=== PATIENT | female | born 1930 | race Caucasian/White ===

== ENCOUNTER 2017-03-31 08:54 | Emergency (ER) | payer MEDICARE ==
[2017-03-31] MEDS ORDERED: NORMAL SALINE 500 ML IV ONE (09:22)
[2017-03-31 09:30] LABS: VENOUS BLOOD BASE EXCESS 4.6 mmol/L; VENOUS BLOOD HCO3 30.1 mmol/L (20-32); VENOUS BLOOD PCO2 47.6 mmHg (35-63); VENOUS BLOOD PH 7.42 (7.30-7.42)
[2017-03-31 09:31] LABS: ABSOLUTE EOSINOPHILS # (AUTO) 0.2 10^3/uL (0.0-0.6); ABSOLUTE LYMPHOCYTES (AUTO) 1.6 10^3/uL (0.5-4.7); ABSOLUTE MONOCYTES (AUTO) 0.7 10^3/uL (0.1-1.4); ABSOLUTE NEUT (AUTO) 5.5 10^3/uL (1.7-8.2); BASOPHILS % (AUTO) 0.4 % (0-2); EOSINOPHILS % (AUTO) 2.3 % (0-6); HEMATOCRIT 42.1 % (36.0-47.0); HEMOGLOBIN 14.7 g/dL (12.0-15.5); LYMPHOCYTES % (AUTO) 20.1 % (13-45); MEAN CORPUSCULAR HEMOGLOBIN 31.4 pg (27.0-33.4); MEAN CORPUSCULAR HGB CONC 34.9 g/dL (32.0-36.0); MEAN CORPUSCULAR VOLUME 90 fl (80-97); MONOCYTES % (AUTO) 8.8 % (3-13); RED BLOOD COUNT 4.67 10^6/uL (3.72-5.28); RED CELL DISTRIBUTION WIDTH 13.7 % (11.5-14.0); SEGMENTED NEUTROPHILS % (AUTO) 68.4 % (42-78); WHITE BLOOD COUNT 8.1 10^3/uL (4.0-10.5)
--- NOTE | 2017-03-31 09:39 | RADIOLOGY REPORT (SQ) ---
EXAM DESCRIPTION: CHEST SINGLE VIEW COMPLETED DATE/TIME: 03/31/2017 9:24 am REASON FOR STUDY: bed 3 afib COMPARISON: June 2015 EXAM PARAMETERS: NUMBER OF VIEWS: One view. TECHNIQUE: Single frontal radiographic view of the chest acquired. RADIATION DOSE: NA LIMITATIONS: Patient has made a shallow inspiration. FINDINGS: LUNGS AND PLEURA: No opacities, masses or pneumothorax. No pleural effusion. There are so me minimal linear densities in the left lung base most consistent with atelectatic changes. MEDIASTINUM AND HILAR STRUCTURES: No masses. Contour normal. HEART AND VASCULAR STRUCTURES: Cardiac silhouette is partially obscured but appears unchanged. BONES: No acute findings. HARDWARE: None in the chest. OTHER: No other significant finding. IMPRESSION: NO ACUTE RADIOGRAPHIC FINDING IN THE CHEST. TECHNICAL DOCUMENTATION: JOB ID: [id number]
--- NOTE | 2017-03-31 09:50 | EKG REPORT ---
SEVERITY:- ABNORMAL ECG - SINUS RHYTHM RBBB AND LAFB LEFT VENTRICULAR HYPERTROPHY : Confirmed by: Ander Terrell MD 31-Mar-2017 09:50:15
[2017-03-31 09:51] LABS: ALANINE AMINOTRANSFERASE 26 U/L (9-52); ALBUMIN 3.9 g/dL (3.5-5.0); ALKALINE PHOSPHATASE 125 U/L (38-126); ANION GAP 9 (5-19); ASPARTATE AMINO TRANSFERASE 19 U/L (14-36); BILIRUBIN,DIRECT 0.3 mg/dL (0.0-0.4); BILIRUBIN,TOTAL 0.6 mg/dL (0.2-1.3); BLOOD UREA NITROGEN 12 mg/dL (7-20); CALCIUM 9.5 mg/dL (8.4-10.2); CARBON DIOXIDE 29 mmol/L (22-30); CHLORIDE 105 mmol/L (98-107); CREATINE KINASE 56 U/L (30-135); CREATININE RESULT 0.64 mg/dL (0.52-1.25); GLUCOSE 102 mg/dL (75-110); LIPASE 43.5 U/L (23-300); MAGNESIUM 2.2 mg/dL (1.6-2.3); POTASSIUM 4.1 mmol/L (3.6-5.0); SODIUM 142.9 mmol/L (137-145); TOTAL PROTEIN 6.7 g/dL (6.3-8.2)
[2017-03-31 10:01] LABS: CREATINE KINASE MB 1.18 ng/mL (<4.55)
[2017-03-31 10:02] LABS: TROPONIN I < 0.012 ng/mL
[2017-03-31 10:57] LABS: APPEARANCE,URINE CLEAR; BILIRUBIN,URINE NEGATIVE (NEGATIVE); GLUCOSE, URINE NEGATIVE (NEGATIVE); KETONES,URINE NEGATIVE (NEGATIVE); LEUKOCYTE ESTERASE,URINE NEGATIVE (NEGATIVE); NITRITE,URINE NEGATIVE (NEGATIVE); PROTEIN,URINE NEGATIVE (NEGATIVE); URINE SPECIFIC GRAVITY 1.004; UROBILINOGEN,URINE NEGATIVE mg/dL (<2.0)
--- NOTE | 2017-03-31 11:45 | ER Document Report ---
ED General - General Chief Complaint: Arrhythmia Stated Complaint: WEAKNESS Time Seen by Provider: 03/31/17 09:05 TRAVEL OUTSIDE OF THE [place] IN LAST 30 DAYS: No - HPI Patient complains to provider of: Generalized weakness Notes: Patient has a history of dementia according to family members patient has had weakness ongoing for over a week. Today found the patient had a rapid heart rate EMS was called found patient did have A. fib with RVR patient was given her home medication prior to arrival here. Upon her arrival patient was rate controlled A. fib on the monitor family is concerned about possible infection UTI. Otherwise states compliant with medication regimen no fevers at home no chills - Related Data Allergies/Adverse Reactions: Iodinated Contrast- Oral and IV Dye [IV Dye, Iodine Containing] Allergy ( Verified 06/11/15 20:31) iodine [Iodine] Allergy (Verified 06/11/15 20:31) nitrofurantoin [From Macrobid] Allergy (Verified 06/11/15 20:31) nitrofurantoin macrocrystalline [From Macrobid] Allergy (Verified 06/11/15 20:31 ) Shellfish * [Shellfish] Allergy (Verified 06/11/15 20:31) Past Medical History - Social History Smoking Status: Never Smoker Chew tobacco use (# tins/day): No Frequency of alcohol use: None Drug Abuse: None Family History: Reviewed & Not Pertinent - Past Medical History Cardiac Medical History: Reports: Hx Atrial Fibrillation Neurological Medical History: Reports: Hx Cerebrovascular Accident Musculoskeltal Medical History: Reports Hx Arthritis Surgical Hx: Negative Review of Systems - Review of Systems Notes: Dementia -: Yes ROS unobtainable due to patient's medical condition Physical Exam - Vital signs Vitals: Pulse Ox 94 03/31/17 08:56 Interpretation: Normal - General General appearance: Appears well, Alert - HEENT Head: Normocephalic, Atraumatic Eyes: Normal Pupils: PERRL - Respiratory Respiratory status: No respiratory distress Chest status: Nontender Breath sounds: Normal Chest palpation: Normal - Cardiovascular Rhythm: Irregularly irregular Heart sounds: Normal auscultation Murmur: No - Abdominal Inspection: Normal Distension: No distension Bowel sounds: Normal Tenderness: Nontender Organomegaly: No organomegaly - Back Back: Normal, Nontender - Extremities General upper extremity: Normal inspection, Nontender, Normal color, Normal ROM , Normal temperature General lower extremity: Normal inspection, Nontender, Normal color, Normal ROM , Normal temperature, Normal weight bearing. No: Penny's sign - Neurological Neuro grossly intact: Yes Cognition: Normal Orientation: AAOx4 Ignacia Coma Scale Eye Opening: Spontaneous Dixon Coma Scale Verbal: Oriented Dixon Coma Scale Motor: Obeys Commands Ignacia Coma Scale Total: 15 Speech: Normal Motor strength normal: LUE, RUE, LLE, RLE Sensory: Normal - Psychological Associated symptoms: Normal affect, Normal mood - Skin Skin Temperature: Warm Skin Moisture: Dry Skin Color: Normal Course - Re-evaluation Re-evalutation: 03/31/17 14:12 Patient's workup here shows no abnormalities and laboratory studies. No signs of infection. The explained to the family possibility the patient having intermittent runs of A. fib with elevated heart rate. However patient has been rate controlled her entire time here. Recommend follow-up with PCP and cardiology team and need for possible Holter monitor and adjustment of her medications however no signs of sepsis or critical etiology will be discharged home - Vital Signs Vital signs: Temp Pulse Resp BP Pulse Ox 97.5 F 70 20 144/61 H 97 03/31/17 12:15 03/31/17 12:15 03/31/17 12:15 03/31/17 12:15 03/31/17 12:15 - Laboratory Result Diagrams: 03/31/17 09:14 03/31/17 09:14 Discharge - Discharge Clinical Impression: Weakness Atrial fibrillation Qualifiers: Atrial fibrillation type: unspecified Qualified Code(s): I48.91 - Unspecified atrial fibrillation Condition: Good Disposition: HOME, SELF-CARE Instructions: Weakness (OM) Additional Instructions: At this time your laboratory studies and chest x-ray did not show any critical values. Patient's heart rate has remained controlled here in the ER. I would highly recommend she follow-up with your doctor and senior architect/design manager next week. The weakness may be due to intermittent runs of increased heart rate due to the patient's atrial fibrillation. Patient may need to be placed on a Holter monitor to monitor her heart for an extended period time and possibility of changing some of the patient's antiarrhythmic medications. At this time her laboratory values normal workup normal and heart rate well controlled here in ER I would be hesitant to change any medications at this time without definitive proof. Continue to take medications as prescribed return to ER symptoms worsen Referrals: RAFA MASON MD [Primary Care Provider] - Follow up as needed
[2017-03-31 12:18] VITALS: BP 144/61
== END 2017-03-31 12:18 | disposition home or self-care (01) ==
LOC: ER 08:54
DX: R53.1 Weakness (principal); I48.91 Unspecified atrial fibrillation; F03.90 Unspecified dementia, unspecified severity, without behavioral disturbance, psychotic disturbance, mood disturbance, and anxiety; Z91.013 Allergy to seafood; Z86.73 Personal history of transient ischemic attack (TIA), and cerebral infarction without residual deficits
CPT/HCPCS: 93005; 99285; 51701; 36415; 82553; 82550; 83605; 83690; 83735; 85025; 80053; 81001; 84484; 82803; 71010; 93010; J7040

== ENCOUNTER 2019-07-04 14:18 | Inpatient (IN) | payer MEDICARE ==
--- NOTE | 2019-07-04 15:38 | ER Document Report ---
ED Medical Screen (RME) - General Chief Complaint: Abnormal Lab Results Stated Complaint: ABNORMAL LABS Time Seen by Provider: 07/04/19 15:31 Primary Care Provider: RAFA MASON MD [Primary Care Provider] - Follow up as needed Mode of Arrival: Wheelchair Information source: Relative Notes: 89-year-old female with history of CVA CHF with some dementia presents to the emergency department sent over by Dr. Mason for elevated white count cough fever chills. He reports increased shortness of breath. family reports dr mason has treated patient with 2 different antibiotics cefdinir and Zithromax. I have greeted and performed a rapid initial assessment of this patient. A comprehensive ED assessment and evaluation of the patient, analysis of test results and completion of the medical decision making process will be conducted by additional ED providers. TRAVEL OUTSIDE OF THE [place] IN LAST 30 DAYS: No - Related Data Allergies/Adverse Reactions: Iodinated Contrast Media [IV Dye, Iodine Containing] Allergy (Verified 06/11/15 20:31) iodine [Iodine] Allergy (Verified 06/11/15 20:31) nitrofurantoin [From Macrobid] Allergy (Verified 06/11/15 20:31) nitrofurantoin macrocrystalline [From Macrobid] Allergy (Verified 06/11/15 20:31) Shellfish * [Shellfish] Allergy (Verified 06/11/15 20:31) Past Medical History - Past Medical History Cardiac Medical History: Reports: Hx Atrial Fibrillation Neurological Medical History: Reports: Hx Cerebrovascular Accident Musculoskeltal Medical History: Reports Hx Arthritis Physical Exam - Vital signs Vitals: Temp Pulse BP Pulse Ox 98.2 F 69 153/112 H 97 07/04/19 15:11 07/04/19 15:11 07/04/19 15:11 07/04/19 15:11 Course - Vital Signs Vital signs: Temp Pulse Resp BP Pulse Ox 98.2 F 69 153/112 H 97 07/04/19 15:11 07/04/19 15:11 07/04/19 15:11 07/04/19 15:11 Doctor's Discharge - Discharge Referrals: RAFA MASON MD [Primary Care Provider] - Follow up as needed
--- NOTE | 2019-07-04 16:12 | ER Document Report ---
ED General - General Chief Complaint: Cough Stated Complaint: ABNORMAL LABS Time Seen by Provider: 07/04/19 15:31 Primary Care Provider: RAFA MASON MD [Primary Care Provider] - Follow up as needed Mode of Arrival: Wheelchair Information source: Patient Notes: HPI: 89-year-old female who presents today with around 2 weeks of some runny nose, congestion, cough, subjective fevers, and wheezing. She has seen Dr. Mason the primary care physician around 4 times and has completed a course of antibiotics and steroids. History of CHF according the family. Patient had laboratory work drawn 2 days ago and was told to come into the office by the primary care physician given that her "heart failure labs tripled". Temperature max today of 99.0. No history of COPD. Not on oxygen at home baseline. Last breathing treatment was at 11 AM. History of atrial fibrillation that is chronic. ROS: See HPI All other review of systems reviewed and otherwise negative Reviewed vital signs and nursing note as charted by RN. PHYSICAL EXAM: CONSTITUTIONAL: Alert and oriented and nods to questions. Patient has aphasia since her previous stroke HEAD: Normocephalic; atraumatic EYES: PERRL; Conjunctivae clear, sclerae non-icteric ENT: Normal nose; bilateral nonpurulent nasal rhinorrhea; moist mucous membranes; pharynx without lesions noted NECK: Supple without meningismus; non-tender; no cervical lymphadenopathy, no masses CARD: Irregularly irregular; no murmurs; symmetric distal pulses RESP: Normal chest excursion without splinting or tachypnea; breath sounds clear and equal bilaterally; scattered wheezing with no appreciable rales or rhonchi c urrently ABD/GI: Normal bowel sounds; non-distended; soft, non-tender BACK: The back appears normal and is non-tender to palpation EXT: Normal ROM in all joints; non-tender to palpation; no edema SKIN: No acute lesions noted NEURO: CN 2-12 intact; 5/5 bilateral upper and lower extremity strength with sensation intact to light touch PSYCH: The patient's mood and manner are appropriate. Grooming and personal hygiene are appropriate. TRAVEL OUTSIDE OF THE [place] IN LAST 30 DAYS: No - Related Data Allergies/Adverse Reactions: Iodinated Contrast Media [IV Dye, Iodine Containing] Allergy (Verified 06/11/15 20:31) iodine [Iodine] Allergy (Verified 06/11/15 20:31) nitrofurantoin [From Macrobid] Allergy (Verified 06/11/15 20:31) nitrofurantoin macrocrystalline [From Macrobid] Allergy (Verified 06/11/15 20:31) Shellfish * [Shellfish] Allergy (Verified 06/11/15 20:31) Past Medical History - General Information source: Relative - Social History Smoking Status: Unknown if Ever Smoked Family History: Reviewed & Not Pertinent Patient has suicidal ideation: No Patient has homicidal ideation: No - Past Medical History Cardiac Medical History: Reports: Hx Atrial Fibrillation Neurological Medical History: Reports: Hx Cerebrovascular Accident Musculoskeletal Medical History: Reports Hx Arthritis Physical Exam - Vital signs Vitals: Temp Pulse BP Pulse Ox 98.2 F 69 153/112 H 97 07/04/19 15:11 07/04/19 15:11 07/04/19 15:11 07/04/19 15:11 Course - Re-evaluation Re-evalutation: 07/04/19 16:11 Given the history and physical examination we will obtain basic labs, x-ray of the chest, BNP, cardiac panel, and reassess. I do believe pulmonary embolism and aortic dissection to be unlikely. Heart rate is currently 110. Tachycardic and irregular. Patient has been receiving breathing treatments over the last 2 weeks. Patient denies any chest pain. 07/04/19 17:17 Imaging and labs as recorded. Elevated BNP. No history of heart failure. Patient has been wheezing with a "temperature" maximum recorded of 99.0 according to the family. She has had some wheezing for the last 2 weeks. No history of COPD or asthma. Concern for the possibility of heart failure. Patient does have a history of atrial fibrillation. Here she is in atrial fibrillation with rapid ventricular response. She has been receiving nebulizers for the last 2 weeks. No history of nebulizers before. Last nebulizer was around 11 AM. Could this be the cause of the increased rate? Patient will be admitted for further evaluation. No complaints of chest pain. No calf pain or leg swelling. History of atrial fibrillation. Runny nose, congestion, and other signs of upper respiratory tract infection. I do believe pulmonary embolism to be unlikely. - Vital Signs Vital signs: Temp Pulse Resp BP Pulse Ox 98.2 F 69 153/112 H 97 07/04/19 15:11 07/04/19 15:11 07/04/19 15:11 07/04/19 15:11 - Laboratory Result Diagrams: 07/04/19 15:56 07/04/19 15:56 Laboratory results interpreted by me: 07/04/19 07/04/19 07/04/19 15:56 15:56 15:56 WBC 14.4 H RDW 17.0 H Lymph % (Auto) 9.7 L Absolute Neuts (auto) 11.9 H Seg Neutrophils % 82.6 H Sodium 135.4 L Chloride 90 L Carbon Dioxide 33 H BUN 32 H Glucose 148 H Total Bilirubin 1.5 H Direct Bilirubin 0.5 H AST 135 H NT-Pro-B Natriuret Pep 7060 H Critical Care Note - Critical Care Note Total time excluding time spent on procedures (mins): 35 Discharge - Discharge Clinical Impression: Atrial fibrillation with rapid ventricular response, Shortness of breath Dyspnea Qualifiers: Dyspnea type: unspecified Qualified Code(s): R06.00 - Dyspnea, unspecified Condition: Fair Disposition: ADMITTED INPATIENT Admitting Provider: Vitaliy (Hospitalist) Unit Admitted: IMCU Referrals: RAFA MASON MD [Primary Care Provider] - Follow up as needed
[2019-07-04 16:16] LABS: ABSOLUTE EOSINOPHILS # (AUTO) 0.1 10^3/uL (0.0-0.6); ABSOLUTE LYMPHOCYTES (AUTO) 1.4 10^3/uL (0.5-4.7); ABSOLUTE NEUT (AUTO) 11.9 10^3/uL (1.7-8.2); BASOPHILS % (AUTO) 0.1 % (0-2); EOSINOPHILS % (AUTO) 0.6 % (0-6); HEMATOCRIT 36.4 % (36.0-47.0); HEMOGLOBIN 12.2 g/dL (12.0-15.5); LYMPHOCYTES % (AUTO) 9.7 % (13-45); MEAN CORPUSCULAR HEMOGLOBIN 31.2 pg (27.0-33.4); MEAN CORPUSCULAR HGB CONC 33.5 g/dL (32.0-36.0); MEAN CORPUSCULAR VOLUME 93 fl (80-97); PLATELET COUNT 215 10^3/uL (150-450); RED BLOOD COUNT 3.91 10^6/uL (3.72-5.28); SEGMENTED NEUTROPHILS % (AUTO) 82.6 % (42-78); TOTAL CELLS COUNTED % (AUTO) 100 %; WHITE BLOOD COUNT 14.4 10^3/uL (4.0-10.5)
[2019-07-04 16:36] LABS: ALBUMIN 4.3 g/dL (3.5-5.0); ALKALINE PHOSPHATASE 126 U/L (38-126); ANION GAP 12 (5-19); ASPARTATE AMINO TRANSFERASE 135 U/L (14-36); BILIRUBIN,DIRECT 0.5 mg/dL (0.0-0.4); BILIRUBIN,TOTAL 1.5 mg/dL (0.2-1.3); BLOOD UREA NITROGEN 32 mg/dL (7-20); CALCIUM 9.6 mg/dL (8.4-10.2); CARBON DIOXIDE 33 mmol/L (22-30); CHLORIDE 90 mmol/L (98-107); GLUCOSE 148 mg/dL (75-110); POTASSIUM 4.6 mmol/L (3.6-5.0); TOTAL PROTEIN 7.7 g/dL (6.3-8.2)
[2019-07-04 16:53] LABS: TROPONIN I 0.028 ng/mL
--- NOTE | 2019-07-04 17:02 | RADIOLOGY REPORT (SQ) ---
EXAM DESCRIPTION: CHEST 2 VIEWS COMPLETED DATE/TIME: 07/04/2019 4:37 pm REASON FOR STUDY: sob COMPARISON: Chest radiographs 06/11/2015 EXAM PARAMETERS: NUMBER OF VIEWS: two views TECHNIQUE: Digital Frontal and Lateral radiographic views of the chest acquired. RADIATION DOSE: NA LIMITATIONS: none FINDINGS: LUNGS AND PLEURA: Hypoventilated lungs with bronchovascular crowding. No focal airspace c onsolidation. No pneumothorax or pleural effusion. MEDIASTINUM AND HILAR STRUCTURES: No masses or contour abnormalities. HEART AND VASCULAR STRUCTURES: Heart normal size. No evidence for failure. BONES: No acute findings. HARDWARE: None in the chest. OTHER: No other significant finding. IMPRESSION: Hypoventilated lungs with bronchovascular crowding. Otherwise, no acute pulmonary findi ngs. TECHNICAL DOCUMENTATION: JOB ID: [id number] [employer]- All Rights Reserved Reading location - IP/workstation name: [email or web address]
[2019-07-04] MEDS ORDERED: DILTIAZEM HCL INJ 25 MG/5 ML VIAL IV ONE (17:17)
[2019-07-04] MEDS: DILTIAZEM HCL/D5W 125 MG/125 ML RTUINJ IV PRN (17:29)
[2019-07-04] MEDS ORDERED: MAGNESIUM HYDROXIDE SUSP 30 ML UDCUP PO PRN (18:17)
[2019-07-04] MEDS ORDERED: ACETAMINOPHEN 325 MG TABLET PO PRN (18:17)
[2019-07-04] MEDS ORDERED: ACETAMINOPHEN 650 MG SUPP.RECT PR PRN (18:17)
[2019-07-04] MEDS ORDERED: LEVALBUTEROL HCL NEB 0.63 MG/3 ML AMPUL NEB PRN (18:17)
[2019-07-04] MEDS ORDERED: ONDANSETRON HCL INJ/PF 4 MG/2 ML SDV IV PRN (18:17)
[2019-07-04] MEDS ORDERED: LORAZEPAM INJ 2 MG/1 ML VIAL IV ONE (18:23)
[2019-07-04] MEDS ORDERED: DILTIAZEM HCL/D5W 125 MG/125 ML RTUINJ IV PRN (18:24)
[2019-07-04] MEDS ORDERED: LORAZEPAM INJ 2 MG/1 ML VIAL IV PRN (18:30)
[2019-07-04] MEDS ORDERED: 1/2 NORMAL SALINE 1,000 ML IV PRN (18:30)
[2019-07-04] MEDS ORDERED: HALOPERIDOL LACTATE INJ 5 MG/1 ML VIAL IV PRN (18:31)
[2019-07-04] MEDS ORDERED: MORPHINE SULFATE 10 MG/ML INJ IV PRN (18:31)
--- NOTE | 2019-07-04 18:40 | PDOC H&P ---
History of Present Illness Admission Date/PCP: 07/04/19 17:40 RAFA MASON MD Patient complains of: Increasing shortness of breath over the last several weeks. History of Present Illness: BOSSMAN HAGEN is a 89 year old female who is cared for by a granddaughter and other family members. She has a history of atrial fibrillation and has been experiencing increasing shortness of breath over the last 4 weeks. She has had 2 courses of antibiotics. The family reports hearing wheezes early on in the course. Over time the shortness of breath increased significantly. The patient did experience increased weight gain in the past and her diuretics were adjusted. Her inspector packer glass container even utilized metolazone. This was approximately 6 weeks ago. As of the last several days the patient exhibited orthopnea and eventually was short of breath while sitting up in the chair. When family was checking her vitals over the past several weeks they have noted elevated pulse rates as high as 135. The patient had a slightly elevated white blood cell count and an elevated BNP. Her troponins were not significantly elevated. Interestingly, she had an elevation in transaminases and a slight elevation in bilirubin. It is difficult to assess her cognitive status because she is aphasic from previous stroke. The family does report that she has exhibited increased weakness and over the last several weeks, concurrent with this illness, she has had minimal appetite and in fact has remained in bed for the most part. They have had to use protective undergarments as the patient does not make them aware of the need to urinate or defecate. The patient was re ferred to the hospital service for evaluation. Past Medical History Cardiac Medical History: Reports: Atrial Fibrillation, Congestive Heart Failure - Last echocardiogram was at her inspector packer glass container's office, Hypertension Denies: Myocardial Infarction, Pulmonary Embolism Pulmonary Medical History: Denies: Chronic Obstructive Pulmonary Disease (COPD), Respiratory Failure, Sleep Apnea EENT Medical History: Denies: Eyes, Ears, Nose Neurological Medical History: Reports: Ischemic CVA, Other - To ischemic strokes. 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 Lesion on the left cheek remains. GI Medical History: Denies: Diverticulitis, Hiatal Hernia, Peptic Ulcer Disease Musculoskeltal Medical History: Reports: Arthritis Psychiatric Medical History: Reports: Dementia - Family reports possible onset of dementia and history agitated depression, Depression Hematology: Reports: Bleeding Tendencies - On Eliquis she will bleed easily especially with skin tears Denies: Anemia, Heparin Induced Thrombocytopenia, Neutropenia Infectious Medical History: Reports: None Past Surgical History Past Surgical History: Reports: None Social History Information Source: Relative Lives with: Family Smoking Status: Never Smoker - Snuff from age 12-2011 Electronic Cigarette use?: No Frequency of Alcohol Use: None Hx Recreational Drug Use: No Hx Prescription Drug Abuse: No - Advance Directive Resuscitation Status: Do Not Resuscitate Family History Family History: CAD, Malignancy Parental Family History Reviewed: Yes Children Family History Reviewed: Yes Sibling(s) Family History Reviewed.: Yes Medication/Allergy Allergies/Adverse Reactions: Iodinated Contrast Media [IV Dye, Iodine Containing] Allergy (Verified 06/11/15 20:31) iodine [Iodine] Allergy (Verified 06/11/15 20:31) nitrofurantoin [From Macrobid] Allergy (Verified 06/11/15 20:31) nitrofurantoin macrocrystalline [From Macrobid] Allergy (Verified 06/11/15 20:31) Shellfish * [Shellfish] Allergy (Verified 06/11/15 20:31) Review of Systems ROS unobtainable: Other - Reviewed with family due to aphasia Constitutional: PRESENT: anorexia Eyes: ABSENT: visual disturbances Ears: ABSENT: hearing changes Nose, Mouth, and Throat: ABSENT: headache(s), mouth pain Cardiovascular: PRESENT: edema, orthropnea, palpitations. ABSENT: chest pain Respiratory: PRESENT: dyspnea, other - Audible wheeze. ABSENT: cough, hemoptysis Gastrointestinal: ABSENT: abdominal pain, nausea, vomiting Genitourinary: PRESENT: other - Urinary incontinence Musculoskeletal: PRESENT: muscle weakness Integumentary: PRESENT: lesions - Squamous cell left cheek, other - Pigment deposition legs Psychiatric: PRESENT: anxiety, other - Agitation, striking out at caregivers Hematologic/Lymphatic: PRESENT: easy bleeding, easy bruising Physical Exam Vital Signs: Temp Pulse Resp BP Pulse Ox 98.2 F 69 20 129/77 H 87 L 07/04/19 15:11 07/04/19 15:11 07/04/19 18:17 07/04/19 18:17 07/04/19 18:17 Intake & Output 07/03/19 07/04/19 07/05/19 06:59 06:59 06:59 Intake Total 8 Balance 8 Weight 81.647 kg General appearance: PRESENT: well-developed, other - Well developed 89-year-old female in moderate distress. Head exam: PRESENT: atraumatic, normocephalic Eye exam: PRESENT: conjunctiva pink. ABSENT: scleral icterus Ear exam: PRESENT: normal external ear exam. ABSENT: bleeding, drainage Mouth exam: PRESENT: dry mucosa, tongue midline Teeth exam: PRESENT: poor dentation Neck exam: ABSENT: carotid bruit, JVD Respiratory exam: PRESENT: rales - Faint rales at bases, symmetrical, tachypnea, wheezes - Intermittent expiratory wheezes. ABSENT: accessory muscle use, prolonged expiratory phas, rhonchi Cardiovascular exam: PRESENT: irregular rhythm GI/Abdominal exam: PRESENT: normal bowel sounds, soft. ABSENT: distended, tenderness Rectal exam: PRESENT: deferred Gentrourinary exam: ABSENT: indwelling catheter Extremities exam: PRESENT: tenderness - Anterior tibial area, +1 edema, other - Pigment deposition bilaterally Musculoskeletal exam: ABSENT: ambulatory Neurological exam: PRESENT: alert, awake, aphasic Psychiatric exam: PRESENT: agitated, anxious, appropriate affect - Greco affect likely representing frustration being in the hospital Skin exam: PRESENT: other - Keratin scaling on both legs from dry skin and edema. ABSENT: normal color - Pigmentation on both legs consistent with chronic edema. Results Laboratory Results: 07/04/19 15:56 07/04/19 15:56 07/04/19 07/04/19 15:56 15:56 WBC 14.4 H RBC 3.91 Hgb 12.2 Hct 36.4 MCV 93 MCH 31.2 MCHC 33.5 RDW 17.0 H Plt Count 215 Seg Neutrophils % 82.6 H Sodium 135.4 L Potassium 4.6 Chloride 90 L Carbon Dioxide 33 H Anion Gap 12 BUN 32 H Creatinine 0.80 Est GFR ( Amer) > 60 Glucose 148 H Calcium 9.6 Total Bilirubin 1.5 H AST 135 H Alkaline Phosphatase 126 Total Protein 7.7 Albumin 4.3 07/04/19 07/04/19 15:56 15:56 Creatine Kinase Cancelled CK-MB (CK-2) Cancelled Troponin I 0.028 NT-Pro-B Natriuret Pep 7060 H Impressions: Chest X-Ray 07/04/19 15:35 IMPRESSION: Hypoventilated lungs with bronchovascular crowding. Otherwise, no acute pulmonary findings. Assessment and Plan - Diagnosis (1) Longstanding persistent atrial fibrillation Is this a current diagnosis for this admission?: Yes Plan: 07/04/2019-the patient presents with chronic persistent atrial fibrillation with rapid ventricular response. From the history it sounds like she has had this for some time. She likely has paroxysms of the rapid ventricular response. She is currently on metoprolol tartrate 25 mg twice daily with Eliquis 5 mg twice daily for anticoagulation. I will continue the metoprolol and utilize a diltiazem infusion to get her heart rate under control. (2) Congestive heart failure Qualifiers: Heart failure type: unspecified Heart failure chronicity: unspecified Qualified Code(s): I50.9 - Heart failure, unspecified Is this a current diagnosis for this admission?: Yes Plan: 07/04/2019-there is no previous echocardiogram. It certainly sounds like she has been treated for congestive heart failure with the beta-cricket and diuretic therapy. I will add low-dose ARON inhibitor as well. Brain natruretic peptide was elevated and there was the suggestion of bronchovascular congestion by x- ray. I have ordered an echocardiogram. I will continue diuretic therapy and cardiology will be seeing the patient. (3) Dyspnea Qualifiers: Dyspnea type: orthopnea Qualified Code(s): R06.01 - Orthopnea Is this a current diagnosis for this admission?: Yes Plan: 07/04/2019-the family reports symptoms consistent with orthopnea and in fact progressive shortness of breath even at rest. She does not have a history of COPD. She is likely exhibiting a cardiac wheeze. There is no evidence of pneumonia. Will treat for congestive heart failure and monitor response. (4) Prerenal azotemia Is this a current diagnosis for this admission?: Yes Plan: 07/04/2019-it is interesting that the patient has a significantly elevated BUN especially when compared to her creatinine. She also has an elevated BNP. I feel that she may need free water and so I have ordered one half normal saline for gentle hydration. Will monitor intake and output, electrolytes and renal function. (5) Elevated transaminase level Is this a current diagnosis for this admission?: Yes Plan: 07/04/2019-no history of liver disease. The patient is agitated and so it may be difficult to obtain imaging of the abdomen. I will discuss further with the family. (6) Hyperbilirubinemia Is this a current diagnosis for this admission?: Yes Plan: 07/04/2019-see discussion above (7) Aphasia as late effect of cerebrovascular accident Is this a current diagnosis for this admission?: Yes Plan: 07/04/2019-the patient has been aphasic since 2010. In discussion with the family did report increased acting out with agitated behavior. This could be depression with frustration from her aphasia but it is also possible that she has dementia with behavioral disturbance. We will continue to monitor closely. (8) Depression with anxiety Is this a current diagnosis for this admission?: Yes Plan: 07/04/2019-I will continue her Zoloft 50 mg daily. She will also have lorazepam and Haldol available on an as-needed basis. (9) Chronic anticoagulation Is this a current diagnosis for this admission?: Yes Plan: 07/04/2019-continue Eliquis 5 mg twice daily and monitor for evidence of bleed ing - Plan Summary Summary: 07/04/2019-the family is concerned because of the obvious and fairly rapid decline of the patient over the last several weeks. There are some contradictory issues such as the prerenal azotemia in the face of an elevated BNP and some peripheral edema. There was consensus about the patient's DNR status. The family also asked multiple questions about palliative and hospice care. The patient was clearly frustrated with being hospitalized and the family asked what would happen if they just took her home. I explained that if he took her home and just stopped her medications she would get more short of breath and be quite uncomfortable. We also discussed the difference between DNR, hospice and comfort only. We agreed to admit the patient for several days of therapy and then rug cleaning supervisor her response. I will have palliative care consult on the patient on Saturday. The patient certainly would be appropriate for hospice with her current condition. In my opinion if we move toward comfort measures only I would anticipate life expectancy of several weeks at best. - Time Time Spent with patient: 35 or more minutes Medications reviewed and adjusted accordingly: Yes - Inpatient Certification Based on my medical assessment, after consideration of the patient's comorbidities, presenting symptoms, or acuity I expect that the services needed warrant INPATIENT care.: Yes I certify that my determination is in accordance with my understanding of Medicare's requirements for reasonable and necessary INPATIENT services [42 CFR 412.3e].: Yes Medical Necessity: Failure to Improve With Outpatient Therapy, Need For Continuous Telemetry Monitoring Post Hospital Care: D/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
--- NOTE | 2019-07-04 18:48 | ADVANCED CARE ---
Attendance: Multiple relatives including the patient's niece and granddaughter
[2019-07-04 19:29] LABS: APPEARANCE,URINE SLIGHTLY-CLOUDY; BILIRUBIN,URINE NEGATIVE (NEGATIVE); COLOR,URINE YELLOW; GLUCOSE, URINE NEGATIVE (NEGATIVE); KETONES,URINE NEGATIVE (NEGATIVE); PROTEIN,URINE NEGATIVE (NEGATIVE); UROBILINOGEN,URINE NEGATIVE mg/dL (<2.0)
--- NOTE | 2019-07-04 21:07 | ADVANCED CARE ---
- Diagnosis (1) Longstanding persistent atrial fibrillation Diagnosis Current: Yes (2) Congestive heart failure Diagnosis Current: Yes (3) Dyspnea Diagnosis Current: Yes (4) Prerenal azotemia Diagnosis Current: Yes (5) Elevated transaminase level Diagnosis Current: Yes (6) Hyperbilirubinemia Diagnosis Current: Yes (7) Aphasia as late effect of cerebrovascular accident Diagnosis Current: Yes (8) Depression with anxiety Diagnosis Current: Yes (9) Chronic anticoagulation Diagnosis Current: Yes Attendance: The patient's niece and the patient's granddaughter Resuscitation Status: Do Not Resuscitate Discussion: Please also see the history and physical. We had a long discussion regarding the patient's current clinical state and declining quality of life over the last year and especially in the last few weeks. We reviewed the patient's appropriateness for hospice, a comfort care plan possibly instituted with home hospice and an aggressive treatment regimen. All of the family are in agreement that the patient's quality of life is quite poor and declining and therefore all are in agreement with DO NOT RESUSCITATE status. They are in agreement with palliative care consult and are considering ongoing aggressive care, palliative care, hospice status and comfort measures only. We will revisit the subject daily based on the patient's response to treatment. Care Planning Goals: As above Document(s) Completed: None Time Spent: 25 minutes
[2019-07-04] MEDS: METOPROLOL TARTRATE 25 MG TABLET PO SCH (21:24)
--- NOTE | 2019-07-04 22:54 | EKG REPORT ---
SEVERITY:- ABNORMAL ECG - ATRIAL FIBRILLATION RIGHT BUNDLE BRANCH BLOCK LVH WITH IVCD AND SECONDARY REPOL ABNRM : Confirmed by: Jo King MD 04-Jul-2019 22:54:14
[2019-07-05] MEDS: DILTIAZEM HCL/D5W 125 MG/125 ML RTUINJ IV PRN ×2 (05:15→08:14)
[2019-07-05 07:18] LABS: APPEARANCE,URINE CLOUDY; BILIRUBIN,URINE NEGATIVE (NEGATIVE); CALCIUM OXALATE CRYSTALS,URINE RARE /HPF; COLOR,URINE DARK YELLOW; GLUCOSE, URINE NEGATIVE (NEGATIVE); KETONES,URINE NEGATIVE (NEGATIVE); LEUKOCYTE ESTERASE,URINE NEGATIVE (NEGATIVE); NITRITE,URINE NEGATIVE (NEGATIVE); PROTEIN,URINE 100 mg/dL (NEGATIVE); URINE SPECIFIC GRAVITY 1.019; UROBILINOGEN,URINE NEGATIVE mg/dL (<2.0)
[2019-07-05 07:30] LABS: HEMATOCRIT 33.6 % (36.0-47.0); HEMOGLOBIN 11.1 g/dL (12.0-15.5); MEAN CORPUSCULAR HEMOGLOBIN 30.6 pg (27.0-33.4); MEAN CORPUSCULAR HGB CONC 32.9 g/dL (32.0-36.0); MEAN CORPUSCULAR VOLUME 93 fl (80-97); PLATELET COUNT 172 10^3/uL (150-450); RED BLOOD COUNT 3.61 10^6/uL (3.72-5.28); RED CELL DISTRIBUTION WIDTH 16.9 % (11.5-14.0); WHITE BLOOD COUNT 16.2 10^3/uL (4.0-10.5)
[2019-07-05 07:55] LABS: ALBUMIN 3.5 g/dL (3.5-5.0); ALKALINE PHOSPHATASE 108 U/L (38-126); ANION GAP 10 (5-19); ASPARTATE AMINO TRANSFERASE 89 U/L (14-36); BILIRUBIN,DIRECT 0.5 mg/dL (0.0-0.4); BILIRUBIN,TOTAL 1.5 mg/dL (0.2-1.3); BLOOD UREA NITROGEN 35 mg/dL (7-20); CALCIUM 8.7 mg/dL (8.4-10.2); CARBON DIOXIDE 34 mmol/L (22-30); CHLORIDE 89 mmol/L (98-107); GLUCOSE 101 mg/dL (75-110); POTASSIUM 3.8 mmol/L (3.6-5.0); TOTAL PROTEIN 6.4 g/dL (6.3-8.2)
[2019-07-05] MEDS ORDERED: 1/2 NORMAL SALINE 1,000 ML IV PRN (08:47)
--- NOTE | 2019-07-05 09:54 | PDOC CONSULTATION ---
Consultation Consult Date: 07/05/19 Attending physician:: TIFFANIE BRITT Provider Consulted: TY BRAR Consult reason:: Atrial Fibrillation History of Present Illness Admission Date/PCP: 07/04/19 17:40 RAFA MASON MD History of Present Illness: BOSSMAN HAGEN is a 89 year old female with a past medical history of atrial fibrillation, congestive heart failure, ischemic CVA, dementia, bedridden, comes to the hospital from home brought by family because of increased heart rate. For the last 2 weeks after a fall she has been bedridden. Family thinks she may be a little bit more short of breath than usual. No chest pain. Patient is completely nonverbal. No orthopnea. No PND. No nausea or vomiting. No fevers. No cough. No runny nose. Past Medical History Cardiac Medical History: Reports: Atrial Fibrillation, Congestive Heart Failure - Last echocardiogram was at her sales compensation analyst's office, Hypertension Denies: Myocardial Infarction, Pulmonary Embolism Pulmonary Medical History: Denies: Chronic Obstructive Pulmonary Disease (COPD), Respiratory Failure, Sleep Apnea EENT Medical History: Denies: Eyes, Ears, Nose Neurological Medical History: Reports: Ischemic CVA, Other - To ischemic strokes. 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 Lesion on the left cheek remains. GI Medical History: Denies: Diverticulitis, Hiatal Hernia, Peptic Ulcer Disease Musculoskeltal Medical History: Reports: Arthritis Psychiatric Medical History: Reports: Dementia - Family reports possible onset of dementia and history agitated depression, Depression Hematology: Reports: Bleeding Tendencies - On Eliquis she will bleed easily especially with skin tears Denies: Anemia, Heparin Induced Thrombocytopenia, Neutropenia Infectious Medical History: Reports: None Past Surgical History Past Surgical History: Reports: None Social History Lives with: Family Smoking Status: Never Smoker - Snuff from age 12-2011 Electronic Cigarette use?: No Frequency of Alcohol Use: None Hx Recreational Drug Use: No Drugs: None Hx Prescription Drug Abuse: No - Advance Directive Resuscitation Status: Do Not Resuscitate Family History Family History: CAD, Malignancy Parental Family History Reviewed: Yes Children Family History Reviewed: Yes Sibling(s) Family History Reviewed.: Yes Medication/Allergy Home Medications: Albuterol Sulfate [Ventolin Hfa 8 gm Mdi (1 Mdi/ER Disp)] 2 puff IH Q6HP PRN 07/05/19 Apixaban [Eliquis 5 mg Tablet] 5 mg PO BID 07/05/19 Donepezil HCl [Aricept 5 mg Tablet] 5 mg PO QHS 07/05/19 Ferrous Sulfate [Feosol 325 mg Tablet] 325 mg PO DAILY 07/05/19 Furosemide [Lasix 40 mg Tablet] 40 mg PO DAILYP PRN 07/05/19 Metolazone [Zaroxolyn 2.5 mg Tablet] 07/05/19 Metoprolol Tartrate [Lopressor 25 mg Tablet] 25 mg PO Q12 07/05/19 Potassium Chloride [Klor-Con 10 Meq Tablet ER] 10 meq PO DAILY 07/05/19 Sertraline HCl [Zoloft 50 mg Tablet] 50 mg PO DAILY 07/05/19 Allergies/Adverse Reactions: Iodinated Contrast Media [IV Dye, Iodine Containing] Allergy (Verified 06/11/15 20:31) iodine [Iodine] Allergy (Verified 06/11/15 20:31) nitrofurantoin [From Macrobid] Allergy (Verified 06/11/15 20:31) nitrofurantoin macrocrystalline [From Macrobid] Allergy (Verified 06/11/15 20:31) Shellfish * [Shellfish] Allergy (Verified 06/11/15 20:31) Physical Exam Vital Signs: Temp Pulse Resp BP Pulse Ox 97.4 F 66 14 121/57 L 98 07/05/19 07:56 07/05/19 07:56 07/05/19 07:56 07/05/19 07:56 07/05/19 07:56 Intake & Output 07/04/19 07/05/19 07/06/19 06:59 06:59 06:59 Intake Total 125 1024 Output Total 100 Balance 25 1024 Weight 81.647 kg Neurological exam: PRESENT: aphasic Results Laboratory Results: 07/05/19 07:23 07/05/19 07:23 07/04/19 07/04/19 07/04/19 15:56 15:56 18:53 WBC 14.4 H RBC 3.91 Hgb 12.2 Hct 36.4 MCV 93 MCH 31.2 MCHC 33.5 RDW 17.0 H Plt Count 215 Seg Neutrophils % 82.6 H Sodium 135.4 L Potassium 4.6 Chloride 90 L Carbon Dioxide 33 H Anion Gap 12 BUN 32 H Creatinine 0.80 Est GFR ( Amer) > 60 Glucose 148 H Calcium 9.6 Magnesium Total Bilirubin 1.5 H AST 135 H Alkaline Phosphatase 126 Total Protein 7.7 Albumin 4.3 Urine Color YELLOW Urine Appearance SLIGHTLY-CLOUDY Urine pH 7.0 Ur Specific St[place]al 1.010 Urine Protein NEGATIVE Urine Glucose (UA) NEGATIVE Urine Ketones NEGATIVE Urine Blood NEGATIVE Urine Nitrite Ur Leukocyte Esterase Urine WBC (Auto) Urine RBC (Auto) 1 07/05/19 07/05/19 07/05/19 06:40 07:23 07:23 WBC 16.2 H RBC 3.61 L Hgb 11.1 L Hct 33.6 L MCV 93 MCH 30.6 MCHC 32.9 RDW 16.9 H Plt Count 172 Seg Neutrophils % Sodium 132.6 L Potassium 3.8 Chloride 89 L Carbon Dioxide 34 H Anion Gap 10 BUN 35 H Creatinine 0.77 Est GFR ( Amer) > 60 Glucose 101 Calcium 8.7 Magnesium 2.5 H Total Bilirubin 1.5 H AST 89 H Alkaline Phosphatase 108 Total Protein 6.4 Albumin 3.5 Urine Color DARK YELLOW Urine Appearance CLOUDY Urine pH 5.0 Ur Specific Stendal 1.019 Urine Protein 100 H Urine Glucose (UA) NEGATIVE Urine Ketones NEGATIVE Urine Blood LARGE H Urine Nitrite NEGATIVE Ur Leukocyte Esterase NEGATIVE Urine WBC (Auto) 24 Urine RBC (Auto) >182 07/04/19 07/04/19 07/04/19 15:56 15:56 19:20 Creatine Kinase Cancelled CK-MB (CK-2) Cancelled Troponin I 0.028 0.021 NT-Pro-B Natriuret Pep 7060 H 07/05/19 07/05/19 01:42 07:23 Creatine Kinase CK-MB (CK-2) Troponin I 0.020 0.018 NT-Pro-B Natriuret Pep Impressions: Chest X-Ray 07/04/19 15:35 IMPRESSION: Hypoventilated lungs with bronchovascular crowding. Otherwise, no acute pulmonary findings. Assessment & Plan - Diagnosis (1) Shortness of breath Is this a current diagnosis for this admission?: Yes Plan: I had an extensive discussion with family did not want anything done they would like her to be comfort care and hospice. I agree with them she will be made comfort care and hospice. (2) Longstanding persistent atrial fibrillation Is this a current diagnosis for this admission?: Yes Plan: No further work-up planned. Patient will be made comfort care and hospice
[2019-07-05] MEDS ORDERED: LOSARTAN POTASSIUM 25 MG TABLET PO SCH (10:00)
[2019-07-05] MEDS ORDERED: FAMOTIDINE INJ/PF 20 MG/2 ML SDV IV SCH (10:00)
[2019-07-05] MEDS ORDERED: APIXABAN 5 MG TABLET PO SCH (10:00)
[2019-07-05] MEDS ORDERED: POTASSIUM CHLORIDE 10 MEQ TABLET.ER PO SCH (10:00)
[2019-07-05] MEDS ORDERED: FUROSEMIDE INJ/PF 20 MG/2 ML SDV IV SCH (10:00)
[2019-07-05] MEDS ORDERED: SERTRALINE HCL 50 MG TABLET PO SCH (10:00)
[2019-07-05] MEDS: METOPROLOL TARTRATE 25 MG TABLET PO SCH (10:36)
--- NOTE | 2019-07-05 11:57 | PDOC PROGRESS REPORT ---
Subjective Progress Note for:: 07/05/19 Subjective:: The patient's son as well as the primary caregiver and her are present at the bedside. The patient answered one question and then fell asleep. She has been very lethargic. Urine is very dark. With a long discussion about the pending change to comfort measures only. See discussion below. Reason For Visit: ATRIAL FIBRILLATION WITH RAPID VENTICULAR RESPONSE Physical Exam Vital Signs: Temp Pulse Resp BP Pulse Ox 97.4 F 66 14 121/57 L 98 07/05/19 07:56 07/05/19 07:56 07/05/19 07:56 07/05/19 07:56 07/05/19 07:56 Intake & Output 07/04/19 07/05/19 07/06/19 06:59 06:59 06:59 Intake Total 125 1024 Output Total 100 Balance 25 1024 Weight 81.647 kg General appearance: PRESENT: mild distress, well-developed. ABSENT: cooperative - Lethargic/somnolent Respiratory exam: PRESENT: rales, symmetrical, unlabored. ABSENT: rhonchi, tachypnea, wheezes Cardiovascular exam: PRESENT: irregular rhythm GI/Abdominal exam: PRESENT: normal bowel sounds, soft. ABSENT: tenderness Musculoskeletal exam: ABSENT: ambulatory Neurological exam: ABSENT: awake Results Laboratory Results: 07/05/19 07:23 07/05/19 07:23 07/04/19 07/04/19 07/04/19 15:56 15:56 18:53 WBC 14.4 H RBC 3.91 Hgb 12.2 Hct 36.4 MCV 93 MCH 31.2 MCHC 33.5 RDW 17.0 H Plt Count 215 Seg Neutrophils % 82.6 H Sodium 135.4 L Potassium 4.6 Chloride 90 L Carbon Dioxide 33 H Anion Gap 12 BUN 32 H Creatinine 0.80 Est GFR ( Amer) > 60 Glucose 148 H Calcium 9.6 Magnesium Total Bilirubin 1.5 H AST 135 H Alkaline Phosphatase 126 Total Protein 7.7 Albumin 4.3 Urine Color YELLOW Urine Appearance SLIGHTLY-CLOUDY Urine pH 7.0 Ur Specific [place] 1.010 Urine Protein NEGATIVE Urine Glucose (UA) NEGATIVE Urine Ketones NEGATIVE Urine Blood NEGATIVE Urine Nitrite Ur Leukocyte Esterase Urine WBC (Auto) Urine RBC (Auto) 1 07/05/19 07/05/19 07/05/19 06:40 07:23 07:23 WBC 16.2 H RBC 3.61 L Hgb 11.1 L Hct 33.6 L MCV 93 MCH 30.6 MCHC 32.9 RDW 16.9 H Plt Count 172 Seg Neutrophils % Sodium 132.6 L Potassium 3.8 Chloride 89 L Carbon Dioxide 34 H Anion Gap 10 BUN 35 H Creatinine 0.77 Est GFR ( Amer) > 60 Glucose 101 Calcium 8.7 Magnesium 2.5 H Total Bilirubin 1.5 H AST 89 H Alkaline Phosphatase 108 Total Protein 6.4 Albumin 3.5 Urine Color DARK YELLOW Urine Appearance CLOUDY Urine pH 5.0 Ur Specific [place] 1.019 Urine Protein 100 H Urine Glucose (UA) NEGATIVE Urine Ketones NEGATIVE Urine Blood LARGE H Urine Nitrite NEGATIVE Ur Leukocyte Esterase NEGATIVE Urine WBC (Auto) 24 Urine RBC (Auto) >182 07/04/19 07/04/19 07/04/19 15:56 15:56 19:20 Creatine Kinase Cancelled CK-MB (CK-2) Cancelled Troponin I 0.028 0.021 NT-Pro-B Natriuret Pep 7060 H 07/05/19 07/05/19 01:42 07:23 Creatine Kinase CK-MB (CK-2) Troponin I 0.020 0.018 NT-Pro-B Natriuret Pep Impressions: Chest X-Ray 07/04/19 15:35 IMPRESSION: Hypoventilated lungs with bronchovascular crowding. Otherwise, no acute pulmonary findings. Assessment and Plan - Diagnosis (1) Longstanding persistent atrial fibrillation Is this a current diagnosis for this admission?: Yes Plan: 07/04/2019-the patient presents with chronic persistent atrial fibrillation with rapid ventricular response. From the history it sounds like she has had this for some time. She likely has paroxysms of the rapid ventricular response. She is currently on metoprolol tartrate 25 mg twice daily with Eliquis 5 mg twice daily for anticoagulation. I will continue the metoprolol and utilize a diltiazem infusion to get her heart rate under control. 07/05/2019-as we are moving to comfort measures only all of the cardiac medications will be discontinued (2) Congestive heart failure Qualifiers: Heart failure type: unspecified Heart failure chronicity: unspecified Qualified Code(s): I50.9 - Heart failure, unspecified Is this a current diagnosis for this admission?: Yes Plan: 07/04/2019-there is no previous echocardiogram. It certainly sounds like she has been treated for congestive heart failure with the beta-cricket and diuretic therapy. I will add low-dose ARON inhibitor as well. Brain natruretic peptide was elevated and there was the suggestion of bronchovascular congestion by x- ray. I have ordered an echocardiogram. I will continue diuretic therapy and cardiology will be seeing the patient. 07/05/2019-as we are moving to comfort measures only, all medications not essential to pain, agitation or air hunger will be discontinued, this includes all of her cardiac meds. (3) Dyspnea Qualifiers: Dyspnea type: orthopnea Qualified Code(s): R06.01 - Orthopnea Is this a current diagnosis for this admission?: Yes Plan: 07/04/2019-the family reports symptoms consistent with orthopnea and in fact progressive shortness of breath even at rest. She does not have a history of COPD. She is likely exhibiting a cardiac wheeze. There is no evidence of pneumonia. Will treat for congestive heart failure and monitor response. 07/05/2019-we did spend some time during our discussion about the patient's breathing. I recommended not continuing oxygen therapy unless it would only prolong the inevitable. I explained that the patient may exhibit struggling when breathing and that this air hunger can in fact be treated with morphine as it will lessen the patient's perception of difficulty breathing. (4) Prerenal azotemia Is this a current diagnosis for this admission?: Yes Plan: 07/04/2019-it is interesting that the patient has a significantly elevated BUN especially when compared to her creatinine. She also has an elevated BNP. I feel that she may need free water and so I have ordered one half normal saline for gentle hydration. Will monitor intake and output, electrolytes and renal function. 07/05/2019-we will no longer administer IV fluids. The patient is free to eat or drink whatever they want. The family was informed about the high risk of aspiration and the fact that it is not a good idea to try and encourage too much intake. We will no longer be monitoring laboratory studies. (5) Elevated transaminase level Is this a current diagnosis for this admission?: Yes Plan: 07/04/2019-no history of liver disease. The patient is agitated and so it may be difficult to obtain imaging of the abdomen. I will discuss further with the family. 07/05/2019-transaminases are slightly better today. As the patient is moving to comfort measures only and going to discontinue any further laboratory studies. (6) Hyperbilirubinemia Is this a current diagnosis for this admission?: Yes Plan: 07/04/2019-see discussion above 07/05/2019-as above (7) Aphasia as late effect of cerebrovascular accident Is this a current diagnosis for this admission?: Yes Plan: 07/04/2019-the patient has been aphasic since 2010. In discussion with the f ester did report increased acting out with agitated behavior. This could be depression with frustration from her aphasia but it is also possible that she has dementia with behavioral disturbance. We will continue to monitor closely. 07/05/2019-the family admits that there is been no improvement in her aphasia from the 2011 stroke. In fact her communication has declined significantly. This parallels her decreased level of activity including being in bed and only transferring to the chair occasionally. Sleeping most of the day and night. Urinary and fecal incontinence as well. All of these were significant contributors to the decision to move forward with comfort measures only. (8) Depression with anxiety Is this a current diagnosis for this admission?: Yes Plan: 07/04/2019-I will continue her Zoloft 50 mg daily. She will also have lorazepam and Haldol available on an as-needed basis. 07/05/2019-after long discussion the family understands that the patient's behavior is likely related to not wanting to continue aggressive therapy. She exhibits decreased mobility and less interaction with family. This all c ontributes to her quality of life that the family states the patient would not want any longer. We are moving to comfort measures only. (9) Chronic anticoagulation Is this a current diagnosis for this admission?: Yes Plan: 07/04/2019-continue Eliquis 5 mg twice daily and monitor for evidence of bleeding 07/05/2019-discontinued - Plan Summary Summary: 07/04/2019-the family is concerned because of the obvious and fairly rapid decline of the patient over the last several weeks. There are some contradictory issues such as the prerenal azotemia in the face of an elevated BNP and some peripheral edema. There was consensus about the patient's DNR status. The family also asked multiple questions about palliative and hospice care. The patient was clearly frustrated with being hospitalized and the family asked what would happen if they just took her home. I explained that if he took her home and just stopped her medications she would get more short of breath and be quite uncomfortable. We also discussed the difference between DNR, hospice and comfort only. We agreed to admit the patient for several days of therapy and then locks tender her response. I will have palliative care consult on the patient on Saturday. The patient certainly would be appropriate for hospice with her cur rent condition. In my opinion if we move toward comfort measures only I would anticipate life expectancy of several weeks at best. 07/05/2019-when I arrived on the pierre the patient's nurse informed me that the patient's caregiver, family including her quadriplegic son, all want to move forward with comfort measures. Reviewed the discussions that we had yesterday during the admission. The patient's son had many questions as his mother was the primary caregiver for him at home. We reviewed the mechanisms of changing to a comfort measures only plan. We reviewed the medications that I would u tilize to ensure comfort without anxiety, agitation or the perception of air hunger. I tried to give them a rough approximation of life expectancy but told them that a more accurate assessment can be made based on the patient's condition each day. Palliative care will be seeing the patient's family and the patient tomorrow. I explained that if the decline was rapid and if I felt the patient was going to within the next 24 to 48 hours I certainly would not recommend transition to home. If the patient was stable and it appeared that life expectancy is 5 to 6 days or better then transition to home hospice is reasonable. Once all of the family members were comfortable with the inform ation provided and had all of their questions answered I proceeded to change the patient's status to comfort only and make the appropriate changes in her medication and treatment regimen. Approximately 40 minutes were spent with the patient and the family at the bedside. - Time Time Spent with patient: 35 or more minutes Medications reviewed and adjusted accordingly: Yes Anticipated discharge: Hospice Within: within 48 hours
[2019-07-05] MEDS ORDERED: MORPHINE SULFATE 10 MG/ML INJ IV PRN ×2 (12:01→12:05)
[2019-07-05] MEDS ORDERED: LORAZEPAM INJ 2 MG/1 ML VIAL IV PRN (12:04)
[2019-07-05] MEDS ORDERED: CARBOXYMETHYLCELLULOSE SOD 0.5% 0.4 ML DROPERETTE OU PRN (15:39)
--- NOTE | 2019-07-05 19:33 | EKG REPORT ---
SEVERITY:- ABNORMAL ECG - ATRIAL FIBRILLATION RBBB AND LAFB PROBABLE LVH WITH SECONDARY REPOL ABNRM : Confirmed by: Jo King MD 05-Jul-2019 19:32:44
[2019-07-06 09:12] VITALS: BP 131/58
--- NOTE | 2019-07-06 13:35 | PDOC DISCHARGE SUMMARY ---
Impression - Admit/DC Date/PCP Admission Date/Primary Care Provider: 07/04/19 17:40 RAAF MAOSN MD Discharge Date: 07/06/19 - Assessment Summary: Patient was admitted for evaluation of persistent atrial fibrillation with rapid ventricular response. Patient was noted to have heart rate going as high as 160s and was placed on diltiazem drip. She was also noted to be in acute on chronic congestive heart failure which is likely worsened also by the tachyarrhythmia. Patient's blood work revealed leukocytosis of 16.2 but unclear etiology no actually any source of infection. Blood work also revealed elevated serum bicarbonate as high as the 30s suggestive of some likely respiratory failure with hypercapnia. No blood gas was done to evaluate. There was also noted hyperbilirubinemia and transaminitis likely from hepatic vasculature congestion from patient's congestive heart failure. BNP was over 7000 and troponins were elevated. Patient also does have history of stroke we will residual deficit and some cognitive impairment/dementia. Given patient's comorbidities and current situation with heart failure, family opted for comfort directed care and hospice upon discharge. Their wishes has been respected and discharge planning/community mental health social worker has seen patient and family has sent information to the hospice providers to contact patient and the family at home to get the hospice services set up. Patient's family will however like for patient to be discharged today as they want her to be at home within familiar surroundings immediately and have preferred not to wait till the hospital services completely get set up at home before patient is discharged. I will be discharging patient home with hospice and have given prescriptions for morphine as needed for work of breathing and pain and Ativan as needed for anxiety/agitation and the hospice services company will contact the family at home to fully get the services set up. - Additional Information Resuscitation Status: Do Not Resuscitate Discharge Diet: As Tolerated Discharge Activity: Activity As Tolerated Referrals: RAFA MASON MD [Primary Care Provider] - Follow up as needed Prescriptions: Lorazepam [Ativan 1 mg Tablet] 1 mg PO Q3HP PRN #16 tab PRN Reason: Hyoscyamine Sulfate [Levsin 0.125 Tablet] 0.125 mg PO Q3HP PRN #10 tablet PRN Reason: Morphine Sulfate [Morphine Oral Soln 10 Mg/5 Ml Udcup] 5 mg PO Q3HP PRN #15 udc PRN Reason: Home Medications: Albuterol Sulfate [Ventolin Hfa 8 gm Mdi (1 Mdi/ER Disp)] 2 puff IH Q6HP PRN 07/05/19 Furosemide [Lasix 40 mg Tablet] 40 mg PO DAILYP PRN 07/05/19 Metolazone [Zaroxolyn 2.5 mg Tablet] 07/05/19 Metoprolol Tartrate [Lopressor 25 mg Tablet] 25 mg PO Q12 07/05/19 Potassium Chloride [Klor-Con 10 Meq Tablet ER] 10 meq PO DAILY 07/05/19 Sertraline HCl [Zoloft 50 mg Tablet] 50 mg PO DAILY 07/05/19 Hyoscyamine Sulfate [Levsin 0.125 Tablet] 0.125 mg PO Q3HP PRN #10 tablet 07/06/19 Lorazepam [Ativan 1 mg Tablet] 1 mg PO Q3HP PRN #16 tab 07/06/19 Morphine Sulfate [Morphine Oral Soln 10 Mg/5 Ml Udcup] 5 mg PO Q3HP PRN #15 udc 07/06/19 History of Present Illiness History of Present Illness: BOSSMAN HAGEN is a 89 year old female who is cared for by a granddaughter and other family members. She has a history of atrial fibrillation and has been experiencing increasing shortness of breath over the last 4 weeks. She has had 2 courses of antibiotics. The family reports hearing wheezes early on in the course. Over time the shortness of breath increased significantly. The patient did experience increased weight gain in the past and her diuretics were adjusted. Her stone driller helper even utilized metolazone. This was approximately 6 weeks ago. As of the last several days the patient exhibited orthopnea and eventually was short of breath while sitting up in the chair. When family was checking her vitals over the past several weeks they have noted elevated pulse rates as high as 135. The patient had a slightly elevated white blood cell co unt and an elevated BNP. Her troponins were not significantly elevated. Interestingly, she had an elevation in transaminases and a slight elevation in bilirubin. It is difficult to assess her cognitive status because she is aphasic from previous stroke. The family does report that she has exhibited increased weakness and over the last several weeks, concurrent with this illness, she has had minimal appetite and in fact has remained in bed for the most part. They have had to use protective undergarments as the patient does not make them aware of the need to urinate or defecate. The patient was referred to the hospital service for evaluation. Physical Exam Vital Signs: Temp Pulse Resp BP Pulse Ox 97.5 F 101 H 18 131/58 H 96 07/06/19 08:14 07/06/19 08:14 07/06/19 08:14 07/06/19 08:14 07/06/19 08:14 Intake & Output 07/05/19 07/06/19 07/07/19 06:59 06:59 06:59 Intake Total 125 1560 50 Output Total 100 300 650 Balance 25 1260 -600 Weight 81.647 kg 81.6 kg General appearance: PRESENT: no acute distress, cooperative Respiratory exam: PRESENT: unlabored. ABSENT: wheezes Cardiovascular exam: PRESENT: irregular rhythm, +S1, +S2. ABSENT: tachycardia Neurological exam: PRESENT: alert, awake Psychiatric exam: ABSENT: agitated, anxious Results Laboratory Results: WBC 16.2 10^3/uL (4.0-10.5) H 07/05/19 07:23 RBC 3.61 10^6/uL (3.72-5.28) L 07/05/19 07:23 Hgb 11.1 g/dL (12.0-15.5) L 07/05/19 07:23 Hct 33.6 % (36.0-47.0) L 07/05/19 07:23 MCV 93 fl (80-97) 07/05/19 07:23 MCH 30.6 pg (27.0-33.4) 07/05/19 07:23 MCHC 32.9 g/dL (32.0-36.0) 07/05/19 07:23 RDW 16.9 % (11.5-14.0) H 07/05/19 07:23 Plt Count 172 10^3/uL (150-450) 07/05/19 07:23 Lymph % (Auto) 9.7 % (13-45) L 07/04/19 15:56 [place] % (Auto) 7.0 % (3-13) 07/04/19 15:56 Eos % (Auto) 0.6 % (0-6) 07/04/19 15:56 Baso % (Auto) 0.1 % (0-2) 07/04/19 15:56 Absolute Neuts (auto) 11.9 10^3/uL (1.7-8.2) H 07/04/19 15:56 Absolute Lymphs (auto) 1.4 10^3/uL (0.5-4.7) 07/04/19 15:56 Absolute Monos (auto) 1.0 10^3/uL (0.1-1.4) 07/04/19 15:56 Absolute Eos (auto) 0.1 10^3/uL (0.0-0.6) 07/04/19 15:56 Absolute Basos (auto) 0.0 10^3/uL (0.0-0.2) 07/04/19 15:56 Seg Neutrophils % 82.6 % (42-78) H 07/04/19 15:56 Sodium 132.6 mmol/L (137-145) L 07/05/19 07:23 Potassium 3.8 mmol/L (3.6-5.0) 07/05/19 07:23 Chloride 89 mmol/L (98-107) L 07/05/19 07:23 Carbon Dioxide 34 mmol/L (22-30) H 07/05/19 07:23 Anion Gap 10 (5-19) 07/05/19 07:23 BUN 35 mg/dL (7-20) H 07/05/19 07:23 Creatinine 0.77 mg/dL (0.52-1.25) 07/05/19 07:23 Est GFR ( Amer) > 60 (>60) 07/05/19 07:23 Est GFR (MDRD) Non-Af > 60 (>60) 07/05/19 07:23 Glucose 101 mg/dL (75-110) 07/05/19 07:23 Calcium 8.7 mg/dL (8.4-10.2) 07/05/19 07:23 Magnesium 2.5 mg/dL (1.6-2.3) H 07/05/19 07:23 Total Bilirubin 1.5 mg/dL (0.2-1.3) H 07/05/19 07:23 Direct Bilirubin 0.5 mg/dL (0.0-0.4) H 07/05/19 07:23 Neonat Total Bilirubin Not Reportable 07/05/19 07:23 Neonat Direct Bilirubin Not Reportable 07/05/19 07:23 Neonat Indirect Bili Not Reportable 07/05/19 07:23 AST 89 U/L (14-36) H 07/05/19 07:23 ALT 192 U/L (<35) 07/05/19 07:23 Alkaline Phosphatase 108 U/L (38-126) 07/05/19 07:23 Creatine Kinase Cancelled 07/04/19 15:56 CK-MB (CK-2) Cancelled 07/04/19 15:56 Troponin I 0.018 ng/mL 07/05/19 07:23 NT-Pro-B Natriuret Pep 7060 pg/mL (<450) H 07/04/19 15:56 Total Protein 6.4 g/dL (6.3-8.2) 07/05/19 07:23 Albumin 3.5 g/dL (3.5-5.0) 07/05/19 07:23 Urine Color DARK YELLOW 07/05/19 06:40 Urine Appearance CLOUDY 07/05/19 06:40 Urine pH 5.0 (5.0-9.0) 07/05/19 06:40 Ur Specific [place] 1.019 07/05/19 06:40 Urine Protein 100 mg/dL (NEGATIVE) H 07/05/19 06:40 Urine Glucose (UA) NEGATIVE mg/dL (NEGATIVE) 07/05/19 06:40 Urine Ketones NEGATIVE mg/dL (NEGATIVE) 07/05/19 06:40 Urine Blood LARGE (NEGATIVE) H 07/05/19 06:40 Urine Nitrite NEGATIVE (NEGATIVE) 07/05/19 06:40 Urine Nitrite (Reflex) NEGATIVE (NEGATIVE) 07/04/19 18:53 Urine Bilirubin NEGATIVE (NEGATIVE) 07/05/19 06:40 Urine Urobilinogen NEGATIVE mg/dL (<2.0) 07/05/19 06:40 Ur Leukocyte Esterase NEGATIVE (NEGATIVE) 07/05/19 06:40 Leukocyte Esterase Rfl NEGATIVE (NEGATIVE) 07/04/19 18:53 Urine WBC (Auto) 24 /HPF 07/05/19 06:40 Urine RBC (Auto) >182 /HPF 07/05/19 06:40 U Hyaline Cast (Auto) 1 /LPF 07/04/19 18:53 Urine Bacteria (Auto) TRACE /HPF 07/05/19 06:40 Urine WBC (Reflex) 2 /HPF 07/04/19 18:53 Squamous Epi Cells Auto <1 /HPF 07/05/19 06:40 Calcium Oxalate Cr Auto RARE /HPF 07/05/19 06:40 Urine Mucus (Auto) FEW /LPF 07/05/19 06:40 Urine Ascorbic Acid 40 (NEGATIVE) H 07/05/19 06:40 07/04/19 07/04/19 07/05/19 15:56 19:20 01:42 CK-MB (CK-2) Cancelled Troponin I 0.028 0.021 0.020 NT-Pro-B Natriuret Pep 7060 H 07/05/19 07:23 CK-MB (CK-2) Troponin I 0.018 NT-Pro-B Natriuret Pep Impressions: Chest X-Ray 07/04/19 15:35 IMPRESSION: Hypoventilated lungs with bronchovascular crowding. Otherwise, no acute pulmonary findings. Plan Time Spent: Greater than 30 Minutes Stroke Is this a Stroke Patient?: Yes Stroke Pt being discharged on Anti-thrombolytic therapy?: No Reason(s) for not prescribing Anti-thrombolytic therapy:: Hospice Care Reason(s) for not prescribing Anti-coagulation therapy:: Hospice Care Reason(s) for not prescribing Statins therapy:: Hospice Care Acute Heart Failure - Is this a Heart Failure Patient?: Yes Documentation of LVEF assessment?: No, Document reason - HOME ON HOSPICE LVEF < 40%?: No- if no continue to question #3 3. Anticoagulant therapy for permanect/persistent/paraoxysmal Afib or Aflutter: N/A
== END 2019-07-06 15:58 | disposition hospice, home (50) | DRG 310 ==
LOC: ER 14:18 → EH 17:40 → 3S 19:49
PROVIDERS: ADMIT Hospitalist; ATTEND Hospitalist
DX: I48.11 Longstanding persistent atrial fibrillation (principal); F41.8 Other specified anxiety disorders; I50.9 Heart failure, unspecified; Z66 Do not resuscitate; I11.0 Hypertensive heart disease with heart failure; I69.320 Aphasia following cerebral infarction; Z79.01 Long term (current) use of anticoagulants; Z79.899 Other long term (current) drug therapy; Z85.828 Personal history of other malignant neoplasm of skin; Z88.8 Allergy status to other drugs, medicaments and biological substances; Z88.3 Allergy status to other anti-infective agents; Z91.041 Radiographic dye allergy status; Z91.013 Allergy to seafood
CPT/HCPCS: 36415; 71046; 80053; 81001; 83735; 83880; 84484; 85025; 85027; 87086; 93005; 93010; 96374; 99285; J2060; J3490